=== PATIENT | female | born 1990 | race Two or more races ===

== ENCOUNTER 2024-03-17 08:25 | Emergency (ER) | payer BC, SELFPAY ==
--- NOTE | 2024-03-17 08:51 | XR_ITS ---
Examination: Complete OB ultrasound, less than 14 weeks, transabdominal Date and time of exam: March 17, 2024 0920 hours INDICATIONS: Pelvic cramping and vaginal bleeding onset today Technique: Obstetrical ultrasound images less than 14 weeks performed via transabdominal imaging Findings: Uterus 8.5 x 4.4 x 5.1 cm No uterine mass or intrauterine gestation Endometrial stripe 8mm Right ovary 3.2 x 2.3 x 2.8 cm arterial flow Left ovary 3.0 x 2.2 x 2.2 cm arterial flow IMPRESSION: Negative examination
--- NOTE | 2024-03-17 08:52 | PD.EDVAGBL ---
ED OB Contraction Preg RMI/HPI General Chief complaint: Vaginal Bleeding Stated complaint: VAG BLEED, 6WKS Time Seen by Provider: 03/17/24 08:26 Arrival date/time: 03/17/24 08:25 33-year-old female A1 presents to the emergency department complaints of vaginal spotting and pelvic pain. Patient believes she is approximately 6 weeks Limitations: no limitations Related Data Previous Rx's ?Medication ?Instructions ?Recorded cephalexin 500 mg capsule 500 mg PO BID 7 days #14 caps 03/17/24 Allergies Allergy/AdvReac Type Severity Reaction Status Date / Time No Known Allergies Allergy Verified 03/17/24 08:27 Review of Systems Review of Systems Systems Reviewed: All systems reviewed, normal except as documented Constitutional Constitutional: Reports system reviewed and no additional complaints, except as documented, Denies fever(s) and Denies headache(s) Eyes Eyes: Reports system reviewed and no additional complaints, except as documented and Denies blurry vision ENT Ears, Nose, Mouth, and Throat: Reports system reviewed and no additional complaints, except as documented, Denies headache(s), Denies nasal congestion and Denies nasal discharge Cardiovascular Cardiovascular: Reports system reviewed and no additional complaints, except as documented, Denies chest pain and Denies dyspnea Respiratory Respiratory: Reports system reviewed and no additional complaints, except as documented, Denies chest congestion, Denies cough and Denies dyspnea Gastrointestinal Gastrointestinal: Reports system reviewed and no additional complaints, except as documented and Denies abdominal pain Genitourinary Genitourinary: Reports system reviewed and no additional complaints, except as documented and Reports abnormal vaginal bleeding Integumentary/Breasts Skin/Breast: Reports system reviewed and no additional complaints, except as documented and Denies rash Neurologic Neurologic: Reports system reviewed and no additional complaints, except as documented, Reports as per HPI and Denies headache(s) Past Medical History Social History SMOKING STATUS: Never smoker ED Exam General Limitations: Present no limitations General appearance: Present alert and in no apparent distress Head Head exam: Present atraumatic Eye Eye exam: Present normal appearance, PERRL and EOMI ENT ENT exam: Present normal exam, normal oropharynx and mucous membranes moist Neck Neck exam: Present normal inspection, full ROM and trachea midline Chest Chest inspection: Present normal inspection and symmetric chest wall rise Respiratory Respiratory exam: Present normal lung sounds bilaterally Cardiovascular Cardiovascular exam: Present regular rate, normal rhythm and normal heart sounds Abdominal Exam Abdominal exam: Present soft and normal bowel sounds Extremities Exam Extremities exam: Present normal inspection and full ROM Back Exam Back exam: Present normal inspection and full ROM Neurological Exam Neurological exam: Present alert, oriented X3 and CN II-XII intact Psychiatric Psychiatric exam: Present normal affect and normal mood Skin Skin exam: Present warm, dry, intact and normal color Course Quality Measures none Orders Category Date Time Status US OB <= 14 weeks fetus Stat Exams 03/17/24 08:51 Completed ABO/RH Type Stat Lab 03/17/24 09:00 Completed Beta HCG,Quantitative Stat Lab 03/17/24 09:00 Completed CBC Stat Lab 03/17/24 09:00 Completed Comprehensive Metabolic Panel Stat Lab 03/17/24 09:00 Completed UA [Urinalysis] Stat Lab 03/17/24 09:15 Completed Vital Signs Vital signs: Vital Signs Temperature 98.2 F 03/17/24 08:54 Pulse Rate 68 03/17/24 08:54 Respiratory Rate 16 03/17/24 08:54 Blood Pressure 127/82 03/17/24 08:54 Pulse Oximetry (%) 99 03/17/24 08:54 Oxygen Delivery Method Room Air 03/17/24 08:54 O2 saturation 98% room air within normal limits Vaginal Bleeding MDM Narrative MDM Narrative: 33-year-old female A1 presents to the emergency department complaints of vaginal spotting and pelvic pain. Patient believes she is approximately 6 weeks On exam patient well-appearing patient is not appear ill or toxic in no acute distress Lab work as well as ultrasound obtained hCG quantitative level is only 3 I suspect patient has a missed Ultrasound shows no evidence of Patient discharged home in no distress I did explain the patient she is to follow-up with [employer] [employer] for further evaluation repeat lab work Patient data External records reviewed:: [facility] previous records Clinical information provided by:: patient Social determinants that could affect healthcare access:: none Patient has the following chronic illnesses:: None How is presenting disease/condition affected by chronic disease/condition?: no chronic disease Evaluation data The following diagnostics were reviewed and interpreted by me:: lab results and radiology exam(s) Lab and/or radiology exams considered but not ordered:: Labs and radiology obtained Interpretation Summary: Reviewed by me Medications / Prescriptions Medications or Prescriptions considered but not ordered:: Given no meds Medication administrations:: No meds given Consultations Consultation(s) initiated? (list below): No Diagnosis Vaginal Bleeding Differential Diagnosis: missed , threatened and dysfunctional uterine bleeding Most likely diagnosis given after review of the tests above:: Threatened Admission Indicated Admission indicated?: not indicated Admission Request Was there a request for admission?: No Disposition Plan Disposition Plan: Discharge Discharge Attestation Discharge Attestation: The patient and all family members were given an opportunity to ask questions and understood the discharge instructions. Discharge instructions specifically effects, indications for sooner follow up or return to the emergency department, and the expected course of current diagnosis. Patient condition: Stable Discharge Plan Plan Patient Disposition: HOME (Self Care) Disposition Comment: Stable Prescriptions/Referrals Prescriptions/Med Rec: New cephalexin 500 mg capsule 500 mg PO BID 7 Days Qty: 14 0RF Referrals: No Primary/Family,Physician [Primary Care Provider] - In 1 week Problem List Clinical Impression: Vaginal bleeding, UTI (urinary tract infection) Patient/Caregiver Discharge Instructions Education Materials: Urinary Tract Infections in Women Additional Instructions: Please follow up with your primary care doctor in the next 24-48hrs for any worsening symptoms return here immediately Print Language: Bulgarian Stand Alone Forms: Ilana Award Info., Patient Portal Info Letter PA/RADHA Supervising Physician JOSH/RADHA Supervising Physician: Dr. Fuentes
[2024-03-17 08:54] VITALS: BP 127/82; PULSE 68; RESP 16; TEMP 36.8; O2SAT 99; BMI 26.6
[2024-03-17 09:24] LABS: Basophils % (Auto) 0 % (0-2.5); Eosinophils # (Auto) 0.1 Thou/mm3 (0.0-0.5); Eosinophils % (Auto) 1 % (0-10); Hematocrit 38.7 % (36.0-46.0); Hemoglobin 13.1 g/dL (12.0-16.0); Immature Granulocytes % (Auto) 0 % (0-0); Immature Granulocytes Auto 0.01 Thou/mm3 (0.00-0.00); Lymphocytes # (Auto) 1.5 Thou/mm3 (1.0-4.8); Lymphocytes % (Auto) 20 % (10-50); Mean Corpuscular HGB Conc 33.9 g/dl (31.0-37.0); Mean Corpuscular Hemoglobin 31.2 pg (25.0-35.0); Mean Corpuscular Volume 92 fL (80-100); Monocytes # (Auto) 0.5 Thou/mm3 (0.0-0.8); Monocytes % (Auto) 7 % (0-12); Neutrophils # (Auto) 5.3 Thou/mm3 (1.8-7.7); Neutrophils % (Auto) 72 % (37-80); Nucleated Red Blood Cell % 0 /100 WBC (0); Platelet Count 270 Thou/mm3 (140-440); RDW Standard Deviation 45.1 fL (36.4-46.3); White Blood Count 7.4 Thou/mm3 (3.6-11.0)
[2024-03-17 09:58] LABS: Alanine Aminotransferase 13 U/L (10-49); Albumin, Serum 4.9 gm/dL (3.5-5.0); Albumin/Globulin Ratio 1.6 (1.2-2.2); Alkaline Phosphatase 56 U/L (46-116); Anion Gap 6 (7-16); Aspartate Amino Transferase 49 U/L (0-34); BUN/Creatinine Ratio 20 Ratio (12-20); Beta HCG,Quantitative 3 mIU/mL (<5.0); Bilirubin,Total 0.6 mg/dL (0.3-1.2); Blood Urea Nitrogen 18 mg/dL (9-23); Calcium 9.6 mg/dL (8.3-10.6); Calcium (Corrected) 9.6 mg/dL (8.5-10.1); Carbon Dioxide 26.1 mMol/L (20.0-31.0); Chloride 105 mMol/L (98-107); Creatinine (Component) 0.9 mg/dL (0.6-1.3); Estimated Creatinine Clearance 100.6 mL/min (>60); Glucose 102 mg/dL (74-106); Osmolality,Calculated 275 (275-295); Potassium 4.1 mMol/L (3.4-5.1); Sodium 137 mMol/L (136-145); Total Protein 7.9 gm/dL (5.7-8.2); eGFR > 60 See Note
[2024-03-17 10:02] LABS: Collection Type, Urine Clean Catch
[2024-03-17 10:14] LABS: Bacteria,Urine Rare; Bilirubin,Urine Negative (Negative); Blood,Urine 3+ (Negative); Color,Urine Lt-Brown (Lt Yel-Yel); Glucose, Urine Negative (Negative); Ketones,Urine Negative (Negative); Leukocyte Esterase,Urine Positive (Negative); Nitrite,Urine Negative (Negative); Protein,Urine Trace (Neg - Trace); RBC,Urine 1268 /hpf (0-3); Specific Gravity,Urine 1.014 (1.001-1.035); Squamous Epithelial Cell,Urine 7 /hpf (0-5); Urobilinogen,Urine Negative mg/dL (0.0-1.0); WBC,Urine 31 /hpf (0-5)
[2024-03-17 10:15] LABS: Clarity,Urine Hazy (Clear/Hazy)
== END 2024-03-17 10:51 | disposition home or self-care (01) ==
PROVIDERS: Nurse Practitioner Primary Care; Emergency Provider Internal Medicine Rheumatology
DX: O20.9 Hemorrhage in early pregnancy, unspecified (principal); O23.40 Unspecified infection of urinary tract in pregnancy, unspecified trimester; N39.0 Urinary tract infection, site not specified; Z3A.00 Weeks of gestation of pregnancy not specified
CPT/HCPCS: 36415; 76801; 80053; 81001; 84702; 85025; 86900; 86901; 99284

== ENCOUNTER 2024-07-14 09:14 | Outpatient (AMB) | payer BC, SELFPAY ==
[2024-07-14 09:34] VITALS: BP 99/68; PULSE 98; RESP 14; TEMP 36.4; O2SAT 95; BMI 26.4
--- NOTE | 2024-07-14 09:34 | OBCLNT_ITS ---
Vital Signs 07/14/24 09:34 Height 1.75 m Height Method Stated Weight 81.363 kg Weight Measurement Method Standing Scale BMI 26.4 BP 99/68 Blood Pressure Source Automatic Cuff Blood Pressure Location Left Upper Arm Position Sitting Respiration 14 Pulse 98 Pulse Source Monitor Temp 97.6 F Temp Source Oral Pulse Oximetry (%) 95 Oxygen Delivery Method Room Air Allergies/Home Meds Allergies & Medications Allergies No Known Allergies Allergy (Verified 07/14/24 09:35) Medication Reconciliation No Known Home Medications 07/14/24 [History Confirmed 07/14/24] Intake Visit Data Collection New Patient or Established: Established Patient (seen at [facility] within 3 years) Reason for Visit:: CARE Seen by Clinical Staff ONLY (RN/MA): No Eyeglass Lens Grinder Required: No Do You Feel Safe at Home: Yes Authorities Contacted: N/A PCP or OBGYN visit in last 3 months: Yes Hx Now: Yes Are you currently on any form of Control: No Last menstrual period: 05/14/24 Pain Present Currently: No Pain Scale Used: Stovall-Javier/Numerical Pain scale:: 0 Smoking Status Smoking Status: Never smoker Questionnaires Covid-19 Vaccine Questionnaire Has patient been vacinated for Covid-19 Have you been vacinated for Covid-19: Yes PHQ-9 PHQ-2 Over the last 2 weeks, how often have you been bothered by any of the following problems? 1. Little interest or pleasure in doing things: not at all 2. Feeling down, depressed, or hopeless: not at all Total score: 0 PHQ-9 3. Trouble falling or staying asleep, or sleeping too much: Not at all 4. Feeling tired or having little energy: Not at all 5. Poor appetite or overeating: Not at all 6. Feeling bad about yourself - or that you are a failure or have let yourself or your family down: Not at all 7. Trouble concentrating on things, such as reading the newspaper or watching television: Not at all 8. Moving or speaking so slowly that other people could have noticed? - Or the opposite - being so fidgety or restless that you have been moving around a lot more than usual: not at all 9. Thoughts that you would be better off or of hurting yourself in some way: Not at all Total score: 0 Source: Developed by Drs. Des Mejia, Vivian Aguilar, Clinton Love and colleagues, with an educational hortencia from [employer]. Depression screen completed yes Social History Living Situation History Marital Status: Lives With: Family Housing: House Tobacco History Smoking Status: Never smoker Second Hand Smoke Exposure: No Alcohol History Alcohol Intake: Never Domestic Abuse History Do You Feel Safe at Home: Yes Past Medical History Past Medical History Have you ever been diagnosed with any of the following: Neurological Problems Cerebrovascular Accident (CVA): No Transient Ischemic Attacks (TIA): No Dementia: No Alzheimer's Disease: No Parkinson's Disease: No Brain Tumor: No Meningitis: No Seizures: No Epilepsy: No Cardiology Problems Myocardial Infarction: No Cardiac Arrhythmia: No Atrial Fibrillation: No Angina: No Congestive Heart Failure: No Hypertension: No Respiratory Problems Chronic Obstructive Pulmonary Disease (COPD): No Asthma: No Bronchitis: No Emphysema: No Tuberculosis: No Hx Cough: No Cough: No Wheezing: No Chest Deformities: No Smoking: No Smoking Cessation Counseling: No Smoking Exposure: No Tobacco Use: No Stomache/Intestinal Problems Liver Cancer: No Hepatitis: No Cirrhosis: No Pancreatic Cancer: No Pancreatitis: No Celiac Disease: No Gall Bladder Disease: No Gastrointestinal Bleed: No Esophageal Varices: No Genital/Urinary Problems Chronic Kidney Disease: No Renal Disease: No Kidney Stones: No Polycystic Kidney Disease: No Reproductive Problems Breast Cancer: No Endometriosis: No Fibroids: No Genital Herpes: No Gonorrhea: No Previous Pregnancies: Yes Musculoskeletal Problems Muscular Dystrophy: No Myasthenia Gravis: No Marfan's Syndrome: No Bone Cancer: No Scoliosis: Yes Carpal Tunnel Syndrome: No Fibromyalgia: No Fractures: No Head,Eye,Nose,Throat Problems Cataracts: No Glaucoma: No Blind: No Retinal Detachment: No Endocrine Problems Diabetes Mellitus Type 1: No Diabetes Mellitus Type 2: No Blood Problems Anemia: Yes Leukemia: No Hemophilia: No Thalassemia: No Psychologic Problems Schizophrenia: No Recreational Drug Use: No Bipolar Disorder: No Other Problems Autoimmune Disease: No Down Syndrome: No Autism: No Developmental Delay: No Cosmetic Surgery: No Surgical History Angioplasty: No History of Present Illness HPI Caroline Denise is a 34-year-old 3 para 0 that comes today for her first OBI appointment. Patient has started her care Dr Giraldo's office. Patient has had beta quant drawn and several ultrasounds for viability. Denies any vaginal bleeding at this point. Patient has some cramping. She also complains of increased fatigue nausea and bloating. Patient denies social habits. Denies surgery. Patient has a history of iron deficient anemia. Jennifer juan's mother has a history of high blood pressure. And patient denies no other complaints. Both patient and partner are very happy about the . 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 Last period May 14, 2024. This gives a due date on February 16, 2025. OB Initial Visit OB Flowsheet OB Flowsheet Initial Weight: Not Recorded Date -?-?-?-?-?-?-?-?-?-?-?-?- EGA Weight Edema CTX Effacement BP Fundal ht Pres Dilation Effacement Station Visit Note Alb Glu FHR Mov 07/14/24 -?-?-?-?-?-?-?-?-?-?-?-?- 8w 5d 81.363 kg absent absent 8.0 Camelia is a 3 para 0 SAB 1 TAB 1. Patient recent SAB was in March. Last period was for FET May 14, 2024 and this gives due date February 16, 2025. Patient is a transfer from Dr Giraldo's office. Medical release for records was obtained. Patient complains of increasing nausea, fatigue, bloating. Denies SAB complaints. Very happy with the . Currently taking vitamins. I advised patient to take B6 twice daily and then I discussed the bands and how to use those for her complaints of nausea. Discussed other comfort measures for nausea vomiting and fatigue in early . I will schedule her MFM NT. And I will call patient to ordered labs and NIPT and screening labs after review of records from Dr. Faulkner 160 absent Menstrual History Menstrual reliability: definite Flow: normal Menstrual regularity: regular Monthly: Yes Age at menarche: 12 On control pills at conception: No Date of positive home test: 06/20/24 Associated symptoms (LMP): Reports nausea and fatigue OB History : 3 Para: 0 Hx Total # of Abortions (Spontaneous & Elective): 2 # of Living Children: 0 Infection History & Risk Evaluation History of STDs: none Genetic Screening & History Symptoms since LMP: nausea, fatigue and bloating Genetic Screening/Teratology Counseling - Includes patient, baby's father, or anyone in either family with: 1. Patient's age 35 years or older as of estimated date of delivery: No 2. Thalassemia (Tajik, Vietnamese, Mediterranean, or Background); MCV less than 80: No 3. Neural Tube Defect (Meningomyelocele, Spina Bifida, or Anencephaly): No 4. Congenital Heart Defect: No 5. Down Syndrome: No 6. Refugio-Sachs (Ashkenazi Voodoo, Cajun, Sudanese Eritrean): No 7. Andrew Disease (Ashkenazi Voodoo): No 8. Familial Dysautonomia (Ashkenazi Voodoo): No 9. Sickle Cell Disease or Trait (): No 10. Hemophilia or other blood disorders: No 11. Muscular Dystrophy: No 12. Cystic Fibrosis: No 13. Cora's Chorea: No 14. Mental Retardation/Autism: No 15. Other inherited genetic or chromosomal disorder: No 16. Maternal Metabolic Disorder (EG,TYPE 1 Diabetes, PKU): No 17. Patient or baby's father had a child with defects not listed above: No 18. Recurrent loss or a stillbirth: No 19. Medications (including supplements, vitamins, herbs or otc drugs)/illicit/recreational drugs/alcohol since last menstrual period: No 20. Any other: No Infection History 1. Live with someone with TB or exposed to TB: No 2. Rash or viral illness since last menstrual period: No 3. Hepatitis B,C: No Other (see comments) Source: [employer] Review of Systems Review of Systems Systems Reviewed: All systems reviewed, normal except as documented Constitutional Constitutional: Reports fatigue Gastrointestinal Gastrointestinal: Reports nausea Endocrine Endocrine: Reports fatigue Exam General Limitations: no limitations General Appearance: alert, in no apparent distress, comfortable, cooperative, healthy appearing, well developed and well groomed Neck Neck exam: Present normal inspection, full ROM and trachea midline Chest Chest inspection: Present normal inspection and symmetric chest wall rise Resp Respiratory exam: Present normal lung sounds bilaterally Card Cardiovascular exam: Present regular rate, normal rhythm and normal heart sounds Abdominal Abdominal exam: Present soft (fht: 160 on sono, IUP 8-9 week) and normal bowel sounds Psych Psychiatric exam: Present normal affect and normal mood Assessment & Plan Diagnosis / Problem List (1) Encounter for supervision of normal primigravida in first trimester, antepartum: Status: Acute (2) Supervision of high risk , unspecified, first trimester: Status: Acute (3) Advanced maternal age (AMA) in : Status: Acute Plan Discussed SAB precautions with patient. Patient advised to continue with her maternal- medicine referral because of AMA. Continue vitamins. Discussed comfort measures for nausea and fatigue. I advised patient to start vitamin B6 twice a day for the nausea and discussed the bands with patient and how to use them. Medical release from Dr Giraldo's office for record and ultrasound reports. We will draw maternity screen and carrier screen after review of existing labs. Order OB panel if needed for after review of labs. Return in 3 weeks OB check Additional Plan Follow Up: 3 Weeks (rtc 3 week ob check) Office Procedures OB Clinic LOC & Office Proc's Nursing/Assessment Patient Status: Established Patient OB Clinic Nursing Assessment: Medication Reconciliation, Update PMH in EMR and Vital Signs OB Clinic Coordination of Care: AMA, Complex Care and Chronic Disease 1-5, Consent,records obtained, informed consent, Education Simp Pt/Fam, Lab and Imaging orders and Staff clarify orders Special Needs: Heart tones Established Patient Charge Established Patient Point Assignment: 150 Established Patient Point Charge: EP Level 4 (120-155)
== END 2024-07-14 10:27 | disposition home or self-care (01) ==
LOC: HODSOBC 09:14
PROVIDERS: PCP Advanced Practice Midwife; Referring Provider Advanced Practice Midwife; Supervising Provider Advanced Practice Midwife; Visit Provider Advanced Practice Midwife
DX: O09.511 Supervision of elderly primigravida, first trimester (principal); Z3A.08 8 weeks gestation of pregnancy
CPT/HCPCS: 99214; G0463

== ENCOUNTER 2024-08-02 15:22 | Outpatient (AMB) | payer BC, SELFPAY ==
--- NOTE | 2024-08-02 15:23 | OBCLNT_ITS ---
Vital Signs 08/02/24 15:30 Height 1.75 m Height Method Measured Weight 83.461 kg Weight Measurement Method Standing Scale BMI 27.2 BP 143/78 H Blood Pressure Source Automatic Cuff Blood Pressure Location Left Upper Arm Position Sitting Respiration 12 Pulse 66 Pulse Source Monitor Temp 98.4 F Temp Source Oral Pulse Oximetry (%) 98 Oxygen Delivery Method Room Air Allergies/Home Meds Allergies & Medications Allergies No Known Allergies Allergy (Verified 08/02/24 15:31) Medication Reconciliation No Known Home Medications 07/14/24 [History Confirmed 08/02/24] Intake Visit Data Collection New Patient or Established: Established Patient (seen at [facility] within 3 years) Reason for Visit:: CARE Seen by Clinical Staff ONLY (RN/MA): No Airfield Engineer Officer Required: No Do You Feel Safe at Home: Yes Authorities Contacted: N/A PCP or OBGYN visit in last 3 months: Yes Hx Now: Yes Pain Present Currently: Yes Pain Scale Used: Stovall-Javier/Numerical Pain scale:: 0 Smoking Status Smoking Status: Never smoker Questionnaires Covid-19 Vaccine Questionnaire Has patient been vacinated for Covid-19 Have you been vacinated for Covid-19: No PHQ-9 PHQ-2 Over the last 2 weeks, how often have you been bothered by any of the following problems? 1. Little interest or pleasure in doing things: not at all 2. Feeling down, depressed, or hopeless: not at all Total score: 0 PHQ-9 3. Trouble falling or staying asleep, or sleeping too much: Not at all 4. Feeling tired or having little energy: Not at all 5. Poor appetite or overeating: Not at all 6. Feeling bad about yourself - or that you are a failure or have let yourself or your family down: Not at all 7. Trouble concentrating on things, such as reading the newspaper or watching television: Not at all 8. Moving or speaking so slowly that other people could have noticed? - Or the opposite - being so fidgety or restless that you have been moving around a lot more than usual: not at all 9. Thoughts that you would be better off or of hurting yourself in some way: Not at all Total score: 0 Source: Developed by Drs. Des Mejia, Vivian BClinton Dickens and colleagues, with an educational hortencia from [employer]. Depression screen completed yes Social History Living Situation History Lives With: Family Housing: House Tobacco History Smoking Status: Never smoker Second Hand Smoke Exposure: No Alcohol History Alcohol Intake: Never Domestic Abuse History Do You Feel Safe at Home: Yes Past Medical History Past Medical History Have you ever been diagnosed with any of the following: Neurological Problems Cerebrovascular Accident (CVA): No Transient Ischemic Attacks (TIA): No Dementia: No Alzheimer's Disease: No Parkinson's Disease: No Brain Tumor: No Meningitis: No Seizures: No Epilepsy: No Cardiology Problems Myocardial Infarction: No Cardiac Arrhythmia: No Atrial Fibrillation: No Angina: No Congestive Heart Failure: No Hypertension: No Respiratory Problems Chronic Obstructive Pulmonary Disease (COPD): No Asthma: No Bronchitis: No Emphysema: No Tuberculosis: No Hx Cough: No Cough: No Wheezing: No Chest Deformities: No Smoking: No Smoking Cessation Counseling: No Smoking Exposure: No Tobacco Use: No Stomache/Intestinal Problems Liver Cancer: No Hepatitis: No Cirrhosis: No Pancreatic Cancer: No Pancreatitis: No Celiac Disease: No Gall Bladder Disease: No Gastrointestinal Bleed: No Esophageal Varices: No Genital/Urinary Problems Renal Disease: No Kidney Stones: No Polycystic Kidney Disease: No Reproductive Problems Breast Cancer: No Endometriosis: No Fibroids: No Genital Herpes: No Gonorrhea: No Previous Pregnancies: Yes Musculoskeletal Problems Muscular Dystrophy: No Myasthenia Gravis: No Marfan's Syndrome: No Bone Cancer: No Scoliosis: Yes Carpal Tunnel Syndrome: No Fibromyalgia: No Fractures: No Head,Eye,Nose,Throat Problems Cataracts: No Glaucoma: No Blind: No Retinal Detachment: No Endocrine Problems Diabetes Mellitus Type 1: No Diabetes Mellitus Type 2: No Blood Problems Anemia: Yes Leukemia: No Hemophilia: No Thalassemia: No Psychologic Problems Schizophrenia: No Recreational Drug Use: No Bipolar Disorder: No Other Problems Down Syndrome: No Autism: No Developmental Delay: No Cosmetic Surgery: No Surgical History Angioplasty: No Visit OB Visit Log OB Flowsheet Initial Weight: Not Recorded Date -?-?--?-?-?-?-?-?-?-?-?-?- EGA Weight Edema CTX Effacement BP Fundal ht Pres Dilation Effacement Station Visit Note Alb Glu FHR Mov 07/14/24 -?-?-?-?-?-?-?-?-?-?-?-?- 8w 1d 81.363 kg absent absent 99/68 8.0 Camelia is a 3 para 0 SAB 1 TAB 1. Patient recent SAB was in March. Last period was for FET May 14, 2024 and this gives due date February 16, 2025. Patient is a transfer from Dr Giraldo's office. Medical release for records was obtained. Patient complains of increasing nausea, fatigue, bloating. Denies SAB complaints. Very happy with the . Currently taking vitamins. I advised patient to take B6 twice daily and then I discussed the bands and how to use those for her complaints of nausea. Discussed other comfort measures for nausea vomiting and fatigue in early . I will schedule her MFM NT. And I will call patient to ordered labs and NIPT and screening labs after review of records from Dr. Faulkner 160 absent 08/02/24 -?-?-?-?-?-?-?-?-?-?-?-?- 10w 6d 83.461 kg absent absent 143/78 11 Denies SAB complaints, nausea improved with sea bands and vitamin B6, mfm appointment scheduled, ordered NIPT and carrier screens. comfort measure for n/v given. rtc 4 week 168 absent CARI Calculator Estimated Delivery Date Method Current WG Current Estimate 02/22/25 Ultrasound #1 10w 6d Other Estimates 02/18/25 LMP (Certain) 11w 3d Assessment & Plan Diagnosis / Problem List (1) Supervision of high risk , unspecified, first trimester: Status: Acute Plan Continue vitamin B6 and sea bands for nausea. Continue prenatals. SAB precautions reviewed with patient. [facility] appointment for anatomy scan was or dered. Patient will do NIPT and carrier screens tomorrow. Return in 3 weeks OB check Additional Plan Follow Up: 4 Weeks (obc) Office Procedures OB Clinic LOC & Office Proc's Nursing/Assessment Patient Status: Established Patient OB Clinic Nursing Assessment: Medication Reconciliation, Update PMH in EMR and Vital Signs OB Clinic Coordination of Care: Complex Care and Chronic Disease 1-5, Consent,records obtained, informed consent, Education Simp Pt/Fam, Results/Orders obtained and Staff clarify orders Special Needs: Heart tones Established Patient Charge Established Patient Point Assignment: 120 Established Patient Point Charge: EP Level 4 (120-155)
[2024-08-02 15:30] VITALS: BP 143/78; PULSE 66; RESP 12; TEMP 36.9; O2SAT 98; BMI 27.2
== END 2024-08-02 16:12 | disposition home or self-care (01) ==
LOC: HODSOBC 15:22
PROVIDERS: Supervising Provider Advanced Practice Midwife; Visit Provider Advanced Practice Midwife
DX: O09.521 Supervision of elderly multigravida, first trimester (principal); O09.291 Supervision of pregnancy with other poor reproductive or obstetric history, first trimester; Z3A.10 10 weeks gestation of pregnancy
CPT/HCPCS: 99214; G0463

== ENCOUNTER 2024-09-01 15:24 | Outpatient (AMB) | payer BC, SELFPAY ==
[2024-09-01 15:55] VITALS: BP 110/66; PULSE 74; RESP 17; TEMP 36.7; O2SAT 97; BMI 26.6
--- NOTE | 2024-09-01 15:55 | OBCLNT_ITS ---
Vital Signs 09/01/24 15:55 Height 1.75 m Height Method Stated Weight 81.647 kg Weight Measurement Method Standing Scale BMI 26.6 BP 110/66 Blood Pressure Source Automatic Cuff Blood Pressure Location Right Upper Arm Position Sitting Respiration 17 Pulse 74 Pulse Source Monitor Temp 98.1 F Temp Source Temporal Artery Scan Pulse Oximetry (%) 97 Oxygen Delivery Method Room Air Allergies/Home Meds Allergies & Medications Allergies No Known Allergies Allergy (Verified 09/01/24 15:56) Medication Reconciliation No Known Home Medications 07/14/24 [History Confirmed 09/01/24] Intake Visit Data Collection New Patient or Established: Established Patient (seen at [facility] within 3 years) Reason for Visit:: OBC Seen by Clinical Staff ONLY (RN/MA): No Press Operator 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 1. Little interest or pleasure in doing things: not at all 2. Feeling down, depressed, or hopeless: not at all Total score: 0 PHQ-9 3. Trouble falling or staying asleep, or sleeping too much: Not at all 4. Feeling tired or having little energy: Not at all 5. Poor appetite or overeating: Not at all 6. Feeling bad about yourself - or that you are a failure or have let yourself or your family down: Not at all 7. Trouble concentrating on things, such as reading the newspaper or watching television: Not at all 8. Moving or speaking so slowly that other people could have noticed? - Or the opposite - being so fidgety or restless that you have been moving around a lot more than usual: not at all 9. Thoughts that you would be better off or of hurting yourself in some way: Not at all Total score: 0 If you checked off any problems, how difficult have these problems made it for you to do your work, take care of things at home, or get along with other people?: not difficult at all Source: Developed by Drs. Des Mejia, Vivian Aguilar, Clinton Love and colleagues, with an educational hortencia from [employer]. 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 Patient recent SAB was in March. Last period was for FET May 14, 2024 and this gives due date February 16, 2025. Patient is a transfer from Dr Giraldo's office. Medical release for records was obtained. Patient complains of increasing nausea, fatigue, bloating. Denies SAB complaints. Very happy with the . Currently taking vitamins. I advised patient to take B6 twice daily and then I discussed the bands and how to use those for her complaints of nausea. Discussed other comfort measures for nausea vomiting and fatigue in early . I will schedule her MFM NT. And I will call patient to ordered labs and NIPT and screening labs after review of records from Dr. Faulkner 08/02/24 -?-?-?-?-?-?-?-?-?-?-?-?- 10w 6d 83.461 kg 143/78 absent 11 168 ab sent Denies SAB complaints, nausea improved with sea bands and vitamin B6, mfm appointment scheduled, ordered NIPT and carrier screens. comfort measure for n/v given. rtc 4 week 09/01/24 -?-?-?-?-?-?-?-?-?-?-?-?- 15w 1d 81.647 kg 110/66 absent unknown 15 155 active Doing well. light FM, c/o nasal congestion, uses OTC, afebrile. no SAB complaints. mfm for 10/11/24 keep MFM appointment. discuss sab precaution, discuss diet wnd weight. comfort measure for congestion. AFP. rtc 4 week CARI Calculator Estimated Delivery Date Method Current WG Current Estimate 02/22/25 Ultrasound #1 15w 1d Other Estimates 02/18/25 LMP (Certain) 15w 5d Notes Visit Date: 09/01/24 Last Updated by: Amna Olivarez CNM 34 yo LMP 05/14/24. EDC 02/16/25. sono 06/25/24: 5w3. EDC: 02/22/25. NIPT-,SMA-,CF-, O+,abs-, rpr;;nr, rub imm, hbsag-,hiv-,HC-, GC/CT-, / Office Procedures OB Clinic LOC & Office Proc's Nursing/Assessment Patient Status: Established Patient OB Clinic Nursing Assessment: Medication Reconciliation, Update PMH in EMR and V ital Signs OB Clinic Coordination of Care: Complex Care and Chronic Disease 1-5, Consent,records obtained, informed consent, Education Simp Pt/Fam and Staff clarify orders Special Needs: Heart tones Established Patient Charge Established Patient Point Assignment: 115 Established Patient Point Charge: EP Level 3 (80-115) Assessment & Plan Diagnosis / Problem List (1) Advanced maternal age (AMA) in : Status: Acute (2) Supervision of high risk , unspecified, first trimester: Status: Acute Plan continue PNV, discuss sab prec, increase fluid, AFP, keep MFM appointment 10/11/24, rtc 4 w obc Additional Plan Follow Up: 4 Weeks (obc)
== END 2024-09-01 17:09 | disposition home or self-care (01) ==
LOC: HODSOBC 15:24
PROVIDERS: Supervising Provider Advanced Practice Midwife; Visit Provider Advanced Practice Midwife
DX: O09.522 Supervision of elderly multigravida, second trimester (principal); Z3A.15 15 weeks gestation of pregnancy
CPT/HCPCS: 99213; G0463

== ENCOUNTER 2024-10-20 08:10 | Outpatient (AMB) | payer BC, SELFPAY ==
[2024-10-20 08:25] VITALS: BP 114/73; PULSE 68; RESP 14; TEMP 36.6; O2SAT 97; BMI 28.1
--- NOTE | 2024-10-20 08:25 | OBCLNT_ITS ---
Vital Signs 10/20/24 08:25 Height 1.75 m Height Method Stated Weight 86.183 kg Weight Measurement Method Standing Scale BMI 28.1 BP 114/73 Blood Pressure Source Automatic Cuff Blood Pressure Location Left Upper Arm Position Sitting Respiration 14 Pulse 68 Pulse Source Monitor Temp 97.9 F Temp Source Oral Pulse Oximetry (%) 97 Oxygen Delivery Method Room Air Allergies/Home Meds Allergies & Medications Allergies No Known Allergies Allergy (Verified 10/20/24 08:26) Medication Reconciliation No Known Home Medications 07/14/24 [History Confirmed 10/20/24] Intake Visit Data Collection New Patient or Established: Established Patient (seen at [facility] within 3 years) Reason for Visit:: CARE Seen by Clinical Staff ONLY (RN/MA): No 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 1. Little interest or pleasure in doing things: not at all 2. Feeling down, depressed, or hopeless: not at all Total score: 0 PHQ-9 3. Trouble falling or staying asleep, or sleeping too much: Not at all 4. Feeling tired or having little energy: Not at all 5. Poor appetite or overeating: Not at all 6. Feeling bad about yourself - or that you are a failure or have let yourself or your family down: Not at all 7. Trouble concentrating on things, such as reading the newspaper or watching television: Not at all 8. Moving or speaking so slowly that other people could have noticed? - Or the opposite - being so fidgety or restless that you have been moving around a lot more than usual: not at all 9. Thoughts that you would be better off or of hurting yourself in some way: Not at all Total score: 0 Source: Developed by Drs. Des Mejia, Vivian Aguilar, Clinton Love and colleagues, with an educational hortencia from [employer]. 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 Patient recent SAB was in March. Last period was for FET May 14, 2024 and this gives due date February 16, 2025. Patient is a transfer from Dr Giraldo's office. Medical release for records was obtained. Patient complains of increasing nausea, fatigue, bloating. Denies SAB complaints. Very happy with the . Currently taking vitamins. I advised patient to take B6 twice daily and then I discussed the bands and how to use those for her complaints of nausea. Discussed other comfort measures for nausea vomiting and fatigue in early . I will schedule her MFM NT. And I will call patient to ordered labs and NIPT and screening labs after review of records from Dr. Faulkner 08/02/24 -?-?-?-?-?-?-?-?-?-?-?-?- 10w 6d 83.461 kg 143/78 absent 11 168 ab sent Denies SAB complaints, nausea improved with sea bands and vitamin B6, mfm appointment scheduled, ordered NIPT and carrier screens. comfort measure for n/v given. rtc 4 week 09/01/24 -?-?-?-?-?-?-?-?-?-?-?-?- 15w 1d 81.647 kg 110/66 absent unknown 15 155 active Doing well. light FM, c/o nasal congestion, uses OTC, afebrile. no SAB complaints. mfm for 10/11/24 keep MFM appointment. discuss sab precaution, discuss diet wnd weight. comfort measure for congestion. AFP. rtc 4 week 10/20/24 -?-?-?-?-?-?-?-?-?-?-?-?- 22w 1d 86.183 kg 114/73 absent unknown 22 145 active questions answered about . + fm, no ptl complaints discuss comfort measure for 2nd tri, question answered re , mfm appointment 1 week. discuss ptl prec, rtc 4 week obc CARI Calculator Estimated Delivery Date Method Current WG Current Estimate 02/22/25 Ultrasound #1 22w 1d Other Estimates 02/18/25 LMP (Certain) 22w 5d Notes Visit Date: 10/20/24 Last Updated by: Amna Olivarez CNM 10/11/24: NIPT- Visit Date: 09/01/24 Last Updated by: Amna Olivarez CNM 34 yo LMP 05/14/24. EDC 02/16/25. sono 06/25/24: 5w3. EDC: 02/22/25. NIPT-,SMA-,CF-, O+,abs-, rpr;;nr, rub imm, hbsag-,hiv-,HC-, GC/CT-, / Office Procedures OB Clinic LOC & Office Proc's Nursing/Assessment Patient Status: Established Patient OB Clinic Nursing Assessment: Medication Reconciliation, Update PMH in EMR and Vital Signs OB Clinic Coordination of Care: AMA, Complex Care and Chronic Disease 1-5, Consent,records obtained, informed consent, Education Simp Pt/Fam, Lab and Imaging orders, Results/Orders obtained and Staff clarify orders Special Needs: Heart tones Established Patient Charge Established Patient Point Assignment: 155 Established Patient Point Charge: EP Level 4 (120-155) Assessment & Plan Diagnosis / Problem List (1) Normal in multigravida in second trimester: Status: Acute (2) Advanced maternal age (AMA) in : Status: Acute Plan discuss diet and exercise. ptl precaution, mFM 1 week. rtc 4 week obc Additional Plan Follow Up: 4 Weeks (obc)
== END 2024-10-20 09:08 | disposition home or self-care (01) ==
LOC: HODSOBC 08:10
PROVIDERS: Supervising Provider Advanced Practice Midwife; Visit Provider Advanced Practice Midwife
DX: O09.522 Supervision of elderly multigravida, second trimester (principal); Z3A.22 22 weeks gestation of pregnancy
CPT/HCPCS: 99214; G0463

== ENCOUNTER 2024-11-16 15:38 | Outpatient (AMB) | payer BC, SELFPAY ==
[2024-11-16 16:03] VITALS: BP 129/81; PULSE 80; RESP 17; TEMP 36.5; O2SAT 93; BMI 27.2
--- NOTE | 2024-11-16 16:03 | GYNCLNT_ITS ---
Vital Signs 11/16/24 16:03 Height 1.75 m Height Method Measured Weight 83.518 kg Weight Measurement Method Standing Scale BMI 27.2 BP 129/81 Blood Pressure Source Automatic Cuff Blood Pressure Location Right Upper Arm Position Sitting Respiration 17 Pulse 80 Pulse Source Monitor Temp 97.7 F Temp Source Temporal Artery Scan Pulse Oximetry (%) 93 L Oxygen Delivery Method Room Air Allergies/Home Meds Allergies & Medications Allergies No Known Allergies Allergy (Verified 11/16/24 16:04) Medication Reconciliation No Known Home Medications 07/14/24 [History Confirmed 11/16/24] Intake Visit Data Collection New Patient or Established: Established Patient (seen at [facility] within 3 years) Reason for Visit:: D\E FOLLOW UP Consent obtained for Telemed Visit: No Seen by Clinical Staff ONLY (RN/MA): No Procedures Rn Required: No Do You Feel Safe at Home: Yes Authorities Contacted: N/A PCP or OBGYN visit in last 3 months: Yes Date of Last PCP or OBGYN visit: 10/20/24 Hx Now: No Are you currently on any form of Control: No Pain Present Currently: No Pain Scale Used: Stovall-Javier/Numerical Pain scale:: 0 Smoking Status Smoking Status: Never smoker 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 1. Little interest or pleasure in doing things: not at all PHQ-9 8. Moving or speaking so slowly that other people could have noticed? - Or the opposite - being so fidgety or restless that you have been moving around a lot more than usual: not at all Source: Developed by Drs. Des Mejia, Vivian Aguilar, Clinton Love and colleagues, with an educational hortencia from [employer]. Social History Living Situation History Lives With: Family Housing: House Tobacco History Smoking Status: Never smoker Second Hand Smoke Exposure: No Alcohol History Alcohol Intake: Never Domestic Abuse History Do You Feel Safe at Home: Yes History of Present Illness HPI Narrative 34-year-old 1 para 0 here for follow-up to a D&E that was done November 05 for a 23-week that had multiple anomalies including spina bifida. 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 And bilateral ventriculomegaly. There is also abnormalities of the formation of the brain as well. Patient had been counseled by the perinatologist regarding the defects and the outcomes of the fetus and she elected to have a D&E in [place]. Patient is very sad but she is hopeful that she will get again and have a normal outcome. Patient had questions regarding increased risk and what she can do going forward to help prevent another fetus like this 1. Reports some spotting and cramping otherwise is doing well. The surgery went well and there is no complications. And there is no anesthesia complications. Patient plans to use contraception for a while to . Currently she is taking folate folic acid 4 mg. And will continue to take her vitamin. Denies social habits. Denies surgeries. And denies chronic illness. She is not having sex at this Review of Systems Review of Systems Systems Reviewed: All systems reviewed, normal except as documented Exam Narrative Physical exam: Normal heart rate and rhythm. Lungs clear no wheezes. Abdomen is soft nontender. Uterus well involuted. Perineum is intact no lacerations. No swelling. Small lochia. Negative Homans' sign. 2+ DTRs. No edema no swelling. Breasts are soft General Limitations: no limitations General Appearance: alert, in no apparent distress, comfortable, cooperative, healthy appearing, well developed and well groomed Head Head exam: atraumatic, normocephalic and normal inspection ENT ENT exam: Present normal exam, normal oropharynx and mucous membranes moist Neck Neck exam: Present normal inspection, full ROM and trachea midline Chest Chest inspection: Present normal inspection and symmetric chest wall rise Resp Respiratory exam: Present normal lung sounds bilaterally Psych Psychiatric exam: Present normal affect and normal mood Results Objective Laboratory: Vital signs are stable. Office Procedures OB Clinic LOC & Office Proc's Nursing/Assessment Patient Status: Established Patient OB Clinic Nursing Assessment: Medication Reconciliation, Update PMH in EMR and Vital Signs OB Clinic Coordination of Care: Complex Care and Chronic Disease 1-5, Consent,records obtained, informed consent, Education Simp Pt/Fam and Results/Orders obtained Established Patient Charge Established Patient Point Assignment: 80 Established Patient Point Charge: EP Level 3 (80-115) Assessment & Plan Diagnosis / Problem List (1) Termination of : Status: Acute Plan Continue to take 4 mg folic acid daily. Patient will also be taking folate and continue with the vitamin. She will be scheduled with OB in 4 weeks to follow-up at 6-week and for third lab work. Okay to resume light exercise as she feels comfortable. Patient to monitor for increasing pain and bleeding. Increase rest and fluids Additional Plan Follow Up: 4 Weeks (6wk pp and f/u lab)
== END 2024-11-16 16:38 | disposition home or self-care (01) ==
LOC: HODSOBC 15:38
PROVIDERS: Supervising Provider Advanced Practice Midwife; Visit Provider Advanced Practice Midwife
DX: Z09 Encounter for follow-up examination after completed treatment for conditions other than malignant neoplasm (principal); Z98.890 Other specified postprocedural states; Z87.59 Personal history of other complications of pregnancy, childbirth and the puerperium
CPT/HCPCS: 99213; G0463

== ENCOUNTER 2024-12-21 08:14 | Outpatient (AMB) | payer BC, SELFPAY ==
[2024-12-21 08:25] VITALS: BP 111/73; PULSE 71; RESP 16; TEMP 36.6; O2SAT 96; BMI 27.0
--- NOTE | 2024-12-21 08:25 | AMBOBPPN_ITS ---
Vital Signs 12/21/24 08:25 Height 1.75 m Height Method Stated Weight 82.724 kg Weight Measurement Method Standing Scale BMI 27.0 BP 111/73 Blood Pressure Source Automatic Cuff Blood Pressure Location Left Upper Arm Position Sitting Respiration 16 Pulse 71 Pulse Source Monitor Temp 97.9 F Temp Source Oral Pulse Oximetry (%) 96 Oxygen Delivery Method Room Air Allergies/Home Meds Allergies & Medications Allergies No Known Allergies Allergy (Verified 12/21/24 08:26) Medication Reconciliation No Known Home Medications 07/14/24 [History Confirmed 12/21/24] Intake Visit Data Collection New Patient or Established: Established Patient (seen at [facility] within 3 years) Reason for Visit:: Seen by Clinical Staff ONLY (RN/MA): No Supervisor Ride Assembly Required: No Do You Feel Safe at Home: Yes Authorities Contacted: N/A PCP or OBGYN visit in last 3 months: Yes Hx Now: No Are you currently on any form of Control: No Last menstrual period: 12/02/24 Pain Present Currently: No Pain Scale Used: Stovall-Javier/Numerical Pain scale:: 0 Smoking Status Smoking Status: 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: Past Medical History Past Medical History: No Hx Breast Cancer, No Hx Hypertension, Yes Hx Anemia, No Hx Renal Disease, No Hx Diabetes Mellitus Type 1 and No Hx Diabetes Mellitus Type 2 Questionnaires Covid-19 Vaccine Questionnaire Has patient been vacinated for Covid-19 Have you been vacinated for Covid-19: Yes Social History Living Situation History Lives With: Family Housing: House Tobacco History Smoking Status: Never smoker Second Hand Smoke Exposure: No Alcohol History Alcohol Intake: Never Domestic Abuse History Do You Feel Safe at Home: Yes EPDS - PP Depression Screening [place] Pospartum Depression Screen I have been able to laugh and see the funny side of things: (0) As much as I always could I have looked forward with enjoyment to things: (0) As much as I ever did I have blamed myself unnecessarily when things went wrong: (0) No, never I have been anxious or worried for no good reason: (0) No, not at all I have felt scared or panicky for no very good reason: (0) No, not at all Things have been getting on top of me: (0) No, I have been coping as well as ever I have been so unhappy that I have had difficulty sleeping: (0) No, not at all I have felt sad or miserable: (0) No, not at all I have been so unhappy that I have been crying: (0) No, never The thought of harming myself has occurred to me: (0) Never Total Score: EPDS Score: Referral is indicated for score of 9 or more, suicidal, or if provider believes patient is depressed regardless of score.: 0 EPDS completed yes Care OB Visit Log OB Flowsheet Initial Weight: Not Recorded Date -?-?-?-?-?-?-?-?-?-?-?-?- EGA Weight BP Alb Glu CTX Pres Fundal ht FHR Mov Dilation Station Effacement Hx Notes Visit Note 07/14/24 -?-?-?-?-?-?-?-?-?-?-?-?- 8w 1d 81.363 kg 99/68 absent 8.0 160 abs ent Camelia is a 3 para 0 SAB 1 TAB 1. Patient recent SAB was in March. Last period was for FET May 14, 2024 and this gives due date February 16, 2025. Patient is a transfer from Dr Giraldo's office. Medical release for records was obtained. Patient complains of increasing nausea, fatigue, bloating. Denies SAB complaints. Very happy with the . Currently taking vitamins. I advised patient to take B6 twice daily and then I discussed the bands and how to use those for her complaints of nausea. Discussed other comfort measures for nausea vomiting and fatigue in early . I will schedule her MFM NT. And I will call patient to ordered labs and NIPT and screening labs after review of records from Dr. Faulkner 08/02/24 -?-?-?-?-?-?-?-?-?-?-?-?- 10w 6d 83.461 kg 143/78 absent 11 168 ab sent Denies SAB complaints, nausea improved with sea bands and vitamin B6, mfm appointment scheduled, ordered NIPT and carrier screens. comfort measure for n/v given. rtc 4 week 09/01/24 -?-?-?-?-?-?-?-?-?-?-?-?- 15w 1d 81.647 kg 110/66 absent unknown 15 155 active Doing well. light FM, c/o nasal congestion, uses OTC, afebrile. no SAB complaints. mfm for 10/11/24 keep MFM appointment. discuss sab precaution, discuss diet wnd weight. comfort measure for congestion. AFP. rtc 4 week 10/20/24 -?-?-?-?-?-?-?-?-?-?-?-?- 22w 1d 86.183 kg 114/73 absent unknown 22 145 active questions answered about . + fm, no ptl complaints discuss comfort measure for 2nd tri, question answered re , mfm appointment 1 week. discuss ptl prec, rtc 4 week obc CARI Calculator Estimated Delivery Date Method Current WG Current Estimate 02/22/25 Ultrasound #1 31w 5d Other Estimates 02/18/25 LMP (Certain) 32w 2d Notes Visit Date: 10/20/24 Last Updated by: Amna Olivarez CNM 10/11/24: NIPT- Visit Date: 09/01/24 Last Updated by: Amna Olivarez CNM 34 yo LMP 05/14/24. EDC 02/16/25. sono 06/25/24: 5w3. EDC: 02/22/25. NIPT-,SMA-,CF-, O+,abs-, rpr;;nr, rub imm, hbsag-,hiv-,HC-, GC/CT-, HPI Interval History: Post-procedure consultation one month after dilatation and evacuation, cramping on the left side, irregular bleeding Jenni Teague presents for consultation one month post dilatation and evacuation for a 23-week , reporting cramping on the left side and irregular bleeding. Her last menstrual period was from December 01 to December 10. The patient describes experiencing cramping localized to the left side, though the exact onset and duration are not specified. She also reports irregular bleeding, which is noted to be a common occurrence post-procedure as ovulation can take up to 3 months to return. The severity and timing of these symptoms are not explicitly stated. Jenni does not mention any aggravating or alleviating factors, radiation of pain, or associated symptoms. Jenni inquires about ovulation and egg reserve, suggesting concerns about her future fertility. She has requested and been granted an extension of her medical leave until February 04, 2025, which may indicate that her current symptoms are impacting her ability to work. Surgical History: - Dilatation and evacuation for a 23-week , approximately one month ago Obstetric History: - GPAL: A1 L0 - history: - Dilatation and evacuation performed at 23 weeks gestation, approximately one month ago Social History: - Currently on medical leave, extension requested until February 04, 2025 Exam General General Appearance: alert, in no apparent distress and healthy appearing Head Head exam: atraumatic Neck Neck exam: Present normal inspection and trachea midline Chest Chest inspection: Present normal inspection and symmetric chest wall rise External exam: Present normal external exam; Absent tenderness Neuro Neurological exam: Present oriented X3 Psych Psychiatric exam: Present normal affect and normal mood Office Procedures OB Clinic LOC & Office Proc's Nursing/Assessment Patient Status: Established Patient OB Clinic Nursing Assessment: Medication Reconciliation, Update PMH in EMR and Vital Signs OB Clinic Coordination of Care: Complex Care and Chronic Disease 1-5, Consent,records obtained, informed consent, Education Simp Pt/Fam, Lab and Imaging orders, Results/Orders obtained and Staff clarify orders Established Patient Charge Established Patient Point Assignment: 105 Post Follow-up Visit Post Follow up Visit: Yes Assessment & Plan Diagnosis / Problem List (1) Pelvic pain: Status: Acute (2) Termination of : Status: Acute Plan Post-procedure complications Assessment: Patient is experiencing cramping on the left side and irregular bleeding one month after dilatation and evacuation procedure for a 23-week . Last menstrual period was from December 01 to December 10. These symptoms are likely related to the post-procedure recovery process, as ovulation can take up to 3 months to return following such procedures, potentially causing irregular bleeding. Plan: - Perform ultrasound to ensure all effects have cleared - Order blood work to confirm resolution of -related changes - Advise patient to take 4 mg of folic acid daily - Recommend regular multivitamin without iron instead of vitamins - Extend medical leave until February 04, 2025 - Order Anti-M?llerian Hormone (AMH) test to assess ovarian reserve - Patient to proceed with tests after January 05 when insurance becomes active - Provide work leave letter
== END 2024-12-21 09:19 | disposition home or self-care (01) ==
LOC: HODSOBC 08:14
PROVIDERS: Supervising Provider Obstetrics & Gynecology; Visit Provider Obstetrics & Gynecology
DX: R10.2 Pelvic and perineal pain (principal)
CPT/HCPCS: 59430

== ENCOUNTER → 2024-12-23 | Outpatient (CLI) | payer BC, SELFPAY ==
--- NOTE | 2024-12-23 15:10 | XR_ITS ---
Examination: Pelvic ultrasound, transabdominal, complete Technique: Transabdominal ultrasound of the pelvis performed using grayscale imaging Date and time of exam: December 23, 2024 1539 hrs. Indications: Post elective and 24 weeks done at [facility] November 05, 2024, vaginal bleeding and pelvic cramping Findings: Uterus 10.4 cm, linear opaque foreign body extending from the fundus to the cervix, consider foreign body, the largest area measuring 3.4 cm Endometrial stripe 11 mm Right ovary 2.6 cm arterial flow Left ovary 3.2 cm arterial flow 18 mm left ovarian cystic region Impression: Large apparent foreign body extending from the fundus of the cervix, consider CT pelvis without intravenous contrast follow-up
--- NOTE | 2024-12-23 15:10 | XR_ITS ---
Examination: Transvaginal ultrasound of the pelvis, complete Technique: Transvaginal sonographic images pelvis performed using macias scale imaging Exam date and time: December 23, 2024 1536 hrs. Indications: Elective 11/05/2024 with vaginal bleeding and cramping beginning November 05, 2024 Findings: Extensive foreign body extending from the fundus of the cervix in the endometrium, the largest area 3.4 cm Endometrial stripe 1.1 cm Right ovary 2.6 cm arterial flow Left ovary 3.2 cm arterial flow with 17 mm cyst Impression: Large apparent foreign body extending from the fundus of the uterus to the cervix Consider CT scan pelvis without intravenous contrast follow-up.
[2024-12-23 16:32] LABS: Misc Send Out* See Sep Rpt
[2024-12-23 17:24] LABS: Follicle Stimulating Hormone 4.67 mIU/mL (See Note)
== END | disposition home or self-care (01) ==
LOC: CDIM 15:05 → COPL 16:18
PROVIDERS: PCP Family Medicine; Referring Provider Obstetrics & Gynecology; Visit Provider Radiology Diagnostic Radiology
DX: N93.9 Abnormal uterine and vaginal bleeding, unspecified (principal); R10.2 Pelvic and perineal pain
CPT/HCPCS: 36415; 76830; 76856; 83001

== ENCOUNTER → 2025-01-24 | Outpatient (CLI) | payer BC, SELFPAY ==
[2025-01-24 14:11] LABS: Basophils # (Auto) 0.0 Thou/mm3 (0.0-0.2); Basophils % (Auto) 1 % (0-2.5); Eosinophils # (Auto) 0.1 Thou/mm3 (0.0-0.5); Eosinophils % (Auto) 1 % (0-10); Hematocrit 37.2 % (36.0-46.0); Hemoglobin 11.9 g/dL (12.0-16.0); Immature Granulocytes Auto 0.04 Thou/mm3 (0.00-0.00); Lymphocytes # (Auto) 1.1 Thou/mm3 (1.0-4.8); Lymphocytes % (Auto) 16 % (10-50); Mean Corpuscular HGB Conc 32.0 g/dl (31.0-37.0); Mean Corpuscular Hemoglobin 28.9 pg (25.0-35.0); Mean Corpuscular Volume 90 fL (80-100); Monocytes # (Auto) 0.5 Thou/mm3 (0.0-0.8); Monocytes % (Auto) 7 % (0-12); Neutrophils # (Auto) 5.1 Thou/mm3 (1.8-7.7); Neutrophils % (Auto) 75 % (37-80); Nucleated Red Blood Cell # 0.00 Thou/mm3 (0.00-0.00); Nucleated Red Blood Cell % 0 /100 WBC (0); Platelet Count 323 Thou/mm3 (140-440); RDW Standard Deviation 45.5 fL (36.4-46.3); Red Blood Count 4.12 Miln/mm3 (4.00-5.20); White Blood Count 6.8 Thou/mm3 (3.6-11.0)
[2025-01-24 14:19] LABS: Alanine Aminotransferase 18 U/L (10-49); Albumin, Serum 4.4 gm/dL (3.5-5.0); Albumin/Globulin Ratio 1.2 (1.2-2.2); Alkaline Phosphatase 85 U/L (46-116); Anion Gap 9 (7-16); Aspartate Amino Transferase 19 U/L (0-34); BUN/Creatinine Ratio 8 Ratio (12-20); Bilirubin,Total 0.3 mg/dL (0.3-1.2); Blood Urea Nitrogen 7 mg/dL (9-23); Calcium 9.2 mg/dL (8.3-10.6); Calcium (Corrected) 9.2 mg/dL (8.5-10.1); Carbon Dioxide 25.4 mMol/L (20.0-31.0); Chloride 106 mMol/L (98-107); Creatinine (Component) 0.9 mg/dL (0.6-1.3); Globulin 3.6 gm/dL (2.3-3.5); Glucose 88 mg/dL (74-106); Osmolality,Calculated 276 (275-295); Potassium 4.5 mMol/L (3.4-5.1); Sodium 140 mMol/L (136-145); Total Protein 8.0 gm/dL (5.7-8.2); eGFR > 60 See Note
[2025-01-24 14:38] LABS: Cocci Serology, IgM Positive (Negative)
[2025-01-24 14:39] LABS: Cocid Sro, CF/ID (UCD) NO CHG* See Sep Rpt
[2025-01-24 15:15] LABS: Sed Rate (ESR) 53 mm/hr (0-20)
== END | disposition home or self-care (01) ==
LOC: COPL 13:26
PROVIDERS: PCP Family Medicine; Referring Provider Family Medicine; Visit Provider Family Medicine
DX: B38.2 Pulmonary coccidioidomycosis, unspecified (principal); L29.9 Pruritus, unspecified
CPT/HCPCS: 36415; 80053; 85025; 85652; 86635

== ENCOUNTER → 2025-01-27 | Outpatient (CLI) | payer BC, SELFPAY ==
--- NOTE | 2025-01-27 12:21 | XR_ITS ---
EXAMINATION: PA chest single view TECHNIQUE: Upright PA chest single view Date and time: January 27, 2025, 1314 hours INDICATIONS: Shortness of breath several days FINDINGS: Abnormal parenchymal disease in the left upper lobe Normal heart size Moderate thoracic dextroscoliosis No pulmonary edema IMPRESSION: Significant parenchymal disease left upper lobe which may relate to coccidioidomycosis, suggest continued chest imaging follow-up
== END | disposition home or self-care (01) ==
LOC: CDIM 12:18
PROVIDERS: PCP Family Medicine; Referring Provider Family Medicine; Visit Provider Family Medicine
DX: R91.8 Other nonspecific abnormal finding of lung field (principal)
CPT/HCPCS: 71045

== ENCOUNTER 2025-02-01 10:56 | Outpatient (AMB) | payer BC, SELFPAY ==
[2025-02-01 11:08] VITALS: BP 105/72; PULSE 100; RESP 18; TEMP 36.7; O2SAT 98; BMI 25.6
--- NOTE | 2025-02-01 11:08 | GYNCLNT_ITS ---
Vital Signs 02/01/25 11:08 Height 1.75 m Height Method Stated Weight 78.471 kg Weight Measurement Method Standing Scale BMI 25.6 BP 105/72 Blood Pressure Source Automatic Cuff Blood Pressure Location Right Upper Arm Position Sitting Respiration 18 Pulse 100 Pulse Source Monitor Temp 98.0 F Temp Source Temporal Artery Scan Pulse Oximetry (%) 98 Oxygen Delivery Method Room Air Allergies/Home Meds Allergies & Medications Allergies No Known Allergies Allergy (Verified 02/01/25 11:09) Medication Reconciliation No Known Home Medications 07/14/24 [History Confirmed 02/01/25] Intake Visit Data Collection New Patient or Established: Established Patient (seen at [facility] within 3 years) Reason for Visit:: RESULTS Seen by Clinical Staff ONLY (RN/MA): No 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 Do You Feel Safe at Home: Yes Authorities Contacted: N/A PCP or OBGYN visit in last 3 months: Yes Date of Last PCP or OBGYN visit: 12/21/24 Hx Now: No Are you currently on any form of Control: No Last menstrual period: 01/30/25 Pain Present Currently: No Pain Scale Used: Stovall-Javier/Numerical Pain scale:: 0 Smoking Status Smoking Status: Never smoker Immunizations Flu Vaccine in the Last 12 Months: No Flu Vaccine Exclusion Criteria: No Exclusion Criteria 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 1. Little interest or pleasure in doing things: not at all 2. Feeling down, depressed, or hopeless: not at all Total score: 0 PHQ-9 3. Trouble falling or staying asleep, or sleeping too much: Not at all 4. Feeling tired or having little energy: Not at all 5. Poor appetite or overeating: Not at all 6. Feeling bad about yourself - or that you are a failure or have let yourself or your family down: Not at all 7. Trouble concentrating on things, such as reading the newspaper or watching television: Not at all 8. Moving or speaking so slowly that other people could have noticed? - Or the opposite - being so fidgety or restless that you have been moving around a lot more than usual: not at all 9. Thoughts that you would be better off or of hurting yourself in some way: Not at all Total score: 0 If you checked off any problems, how difficult have these problems made it for you to do your work, take care of things at home, or get along with other people?: not difficult at all Source: Developed by Drs. Des Mejia, Vivian Aguilar, Clinton Love and colleagues, with an educational hortencia from [employer]. Depression screen completed yes Social History Living Situation History Marital Status: Lives With: Family Housing: House Tobacco History Smoking Status: Never smoker Second Hand Smoke Exposure: No Alcohol History Alcohol Intake: Never Domestic Abuse History Do You Feel Safe at Home: Yes History of Present Illness HPI Narrative Jenni Teague presents for follow-up of valley fever and evaluation of a retained IUD fragment. Around the week of January 19, she developed chills without fever, followed by a skin rash and nodules. 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 Hdez, whom she saw on January 24. She is currently taking 2 pills daily as prescribed, with follow-up scheduled in 2 weeks. The patient reports significant functional impairment, stating I can barely walk now and I was jogging before, but now I can't walk. She experiences muscle aches that have severely limited her mobility and ability to work. She received a work excuse letter from Dr. Hdez for the following week but feels she needs additional time off due to her symptoms. Regarding her gynecologic history, she had an IUD in place for 9 years that became stuck during removal. A new IUD was placed, but she reports feeling something up there. Ultrasound imaging revealed a linear opaque foreign body in the uterus, likely a retained piece of the previous IUD. She is currently taking fluconazole as part of her valley fever treatment and has been advised to avoid conceiving while on this medication. The patient is adherent to her current treatment regimen and has had recent healthcare interactions including the infectious disease consultation and imaging studies. She expresses concerns about potential workplace exposure restrictions given her condition and treatment status. ROS: General: Positive for chills, negative for fever. Skin: Positive for rash and nodules. Musculoskeletal: Positive for muscle aches and difficulty walking. Ge nitourinary: Positive for sensation of foreign body in uterus. Exam General General Appearance: alert, in no apparent distress and healthy appearing Head Head exam: atraumatic Neck Neck exam: Present normal inspection and trachea midline Chest Chest inspection: Present normal inspection and symmetric chest wall rise External exam: Present normal external exam; Absent tenderness Neuro Neurological exam: Present oriented X3 Psych Psychiatric exam: Present normal affect and normal mood Office Procedures OBC Clinic LOC & Office Proc's Nursing/Assessment Patient Status: Established Patient OB Clinic Nursing Assessment: Medication Reconciliation, Update PMH in EMR and Vital Signs OB Clinic Coordination of Care: Complex Care and Chronic Disease 1-5, Education Complex Pt/Fam, Consent,records obtained, informed consent, Results/Orders obtained and Staff clarify orders Established Patient Charge Established Patient Point Assignment: 95 Established Patient Point Charge: EP Level 3 (80-115) Assessment & Plan Diagnosis / Problem List (1) Pelvic pain: Status: Acute (2) Retained intrauterine contraceptive device (IUD): Status: Acute (3) Coccidioidomycosis, unspecified: Status: Acute Plan Valley Fever: - Patient tested positive for valley fever with characteristic symptoms beginning around the week of the 15th. - Symptoms include chills without fever, skin rash, nodules, and severe muscle aches limiting mobility. - Currently under care of Dr. Hdez from infectious disease. Plan: - Continue current antifungal treatment (2 pills daily) as prescribed by Dr. Hdez. - Treatment duration will be 3 to 6 months to prevent regrowth of fungus. - Expect improvement in first two weeks with gradual return to normal activity: ? Progress from walking to jogging once muscles improve. ? Fresh air exposure recommended. - Work excuse extension to be discussed with Dr. Hdez once surgery date established. - Avoid conception while on fluconazole treatment. - Start folic acid one month before attempting to conceive. Retained IUD Fragment: - Ultrasound reveals linear opaque foreign body in uterus, likely retained IUD piece. - Patient had IUD for 9 years that became stuck during removal with new IUD placement. - Continues to feel something present in uterus. Plan: - Hysteroscopy planned to visualize and remove retained IUD fragment. - Intraoperative x-ray will be used to locate and remove the fragment. - Insurance authorization to be submitted today. - Patient will be contacted once insurance approval obtained.
== END 2025-02-01 11:33 | disposition home or self-care (01) ==
LOC: HODSOBC 10:56
PROVIDERS: Supervising Provider Obstetrics & Gynecology; Visit Provider Obstetrics & Gynecology
DX: T83.39XA Other mechanical complication of intrauterine contraceptive device, initial encounter (principal); B38.0 Acute pulmonary coccidioidomycosis; Y76.2 Prosthetic and other implants, materials and accessory obstetric and gynecological devices associated with adverse incidents; Y84.8 Other medical procedures as the cause of abnormal reaction of the patient, or of later complication, without mention of misadventure at the time of the procedure
CPT/HCPCS: 99213; G0463

== ENCOUNTER 2025-02-17 07:35 | Day surgery (SDC) | payer BC, SELFPAY ==
[2025-02-11 11:42] VITALS: BMI 25.8
[2025-02-11 12:22] LABS: Basophils # (Auto) 0.0 Thou/mm3 (0.0-0.2); Basophils % (Auto) 1 % (0-2.5); Eosinophils # (Auto) 0.1 Thou/mm3 (0.0-0.5); Eosinophils % (Auto) 2 % (0-10); Hematocrit 36.3 % (36.0-46.0); Hemoglobin 11.4 g/dL (12.0-16.0); Immature Granulocytes Auto 0.02 Thou/mm3 (0.00-0.00); Lymphocytes # (Auto) 1.4 Thou/mm3 (1.0-4.8); Lymphocytes % (Auto) 18 % (10-50); Mean Corpuscular HGB Conc 31.4 g/dl (31.0-37.0); Mean Corpuscular Hemoglobin 27.6 pg (25.0-35.0); Mean Corpuscular Volume 88 fL (80-100); Monocytes # (Auto) 0.5 Thou/mm3 (0.0-0.8); Monocytes % (Auto) 6 % (0-12); Neutrophils # (Auto) 5.5 Thou/mm3 (1.8-7.7); Neutrophils % (Auto) 73 % (37-80); Nucleated Red Blood Cell # 0.00 Thou/mm3 (0.00-0.00); Nucleated Red Blood Cell % 0 /100 WBC (0); Platelet Count 389 Thou/mm3 (140-440); RDW Standard Deviation 45.5 fL (36.4-46.3); Red Blood Count 4.13 Miln/mm3 (4.00-5.20); White Blood Count 7.6 Thou/mm3 (3.6-11.0)
[2025-02-11 12:39] LABS: HCG,Qualitative Serum Negative
[2025-02-11 12:41] LABS: Alanine Aminotransferase 13 U/L (10-49); Albumin, Serum 4.5 gm/dL (3.5-5.0); Albumin/Globulin Ratio 1.3 (1.2-2.2); Alkaline Phosphatase 87 U/L (46-116); Anion Gap 5 (7-16); Aspartate Amino Transferase 43 U/L (0-34); BUN/Creatinine Ratio 14 Ratio (12-20); Bilirubin,Total 0.2 mg/dL (0.3-1.2); Blood Urea Nitrogen 13 mg/dL (9-23); Calcium 9.5 mg/dL (8.3-10.6); Calcium (Corrected) 9.5 mg/dL (8.5-10.1); Carbon Dioxide 28.9 mMol/L (20.0-31.0); Chloride 106 mMol/L (98-107); Creatinine (Component) 0.9 mg/dL (0.6-1.3); Estimated Creatinine Clearance 91.2 mL/min (>60); Globulin 3.5 gm/dL (2.3-3.5); Glucose 87 mg/dL (74-106); Osmolality,Calculated 278 (275-295); Potassium 4.4 mMol/L (3.4-5.1); Sodium 140 mMol/L (136-145); Total Protein 8.0 gm/dL (5.7-8.2); eGFR > 60 See Note
[2025-02-17] VITALS (9 sets, daily range): BP systolic 112–141; BP diastolic 63–89; PULSE 72–96; RESP 14–20; TEMP 36.2–36.6; O2SAT 95–98; BMI 25.0
--- NOTE | 2025-02-17 10:50 | SUR.PHASEI ---
pt received from OR in recovery bay 6. pt asleep but responds to voice, breathing unlabored on room air. v/s stable. pt dressing peripad cdi. report received from Nevin Ruiz and Dr. Morgan.
--- NOTE | 2025-02-17 10:51 | PD.GYNPROC ---
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 Identity was confirmed with two patient identifiers. The patient was placed in dorsal lithotomy position. Anesthesia was administered, and the perineum and vagina were prepped and draped in the usual sterile fashion. A surgical timeout was completed. The fluid management system was connected, primed, and functional. The inflow and outflow tubing were secured, and the fluid deficit was set to zero at the start of the procedure. A vaginal speculum was inserted, and the cervix was visualized. It was grasped with atraumatic tenaculum forceps and placed under gentle traction. The endocervical canal was serially dilated to 7 mm using graduated dilators. The hysteroscope was introduced under direct visualization. Upon entry, a broken intrauterine device fragment was visualized in the lower endocervical canal, with attached strings extending into the cervical os. Initial attempts were made using hysteroscopic grasping forceps, but the fragment appeared embedded in the endocervical wall and could not be dislodged. Subsequently, a pair of alligator forceps was introduced under direct hysteroscopic guidance. With careful manipulation, the retained IUD fragment was successfully dislodged and removed intact. The hysteroscope was reintroduced, and a thorough inspection of the endometrial cavity and endocervical canal was performed. The endometrial cavity appeared normal. No residual fragments or abnormalities were noted. All instruments were withdrawn. The fluid deficit was reviewed and documented. Hemostasis was confirmed. The cervix and vagina were inspected and intact. The patient tolerated the procedure well and was transferred to recovery in stable condition. All sponge and instrument counts were correct ?2. Specimen: other Estimated blood loss (ml): 5 Findings: Hysteroscopic fluid deficit 135 cc Complications: none Surgical staff Operation Date: 02/17/25 09:45 <No data on this case meets the specified criteria> Diagnosis Problem List Completed Was Problem List Reviewed/Reconciled?: Yes
--- NOTE | 2025-02-17 11:45 | SUR.PHASEII ---
Pt. meets criteria for discharge, VSS, no c/o pain or nausea at this time, no active vaginal bleeding at this time, IV discontinued without complications, discharge instructions provided to pt. and pt.'s friend, verbalized understanding. Pt. escorted to vehicle via w/c with all of belongings by staff.
== END 2025-02-17 11:45 | disposition home or self-care (01) ==
PROVIDERS: PCP Family Medicine; Referring Provider Obstetrics & Gynecology; Visit Provider Obstetrics & Gynecology
PROC: 0UJD8ZZ Inspection of Uterus and Cervix, Via Natural or Artificial Opening Endoscopic (ICD-10-PCS; CPT 58555; principal; 2025-02-17 09:30)
DX: T83.89XA Other specified complication of genitourinary prosthetic devices, implants and grafts, initial encounter (principal); B38.9 Coccidioidomycosis, unspecified
CPT/HCPCS: 58562; 36415; 80053; 84703; 85025; 86850; 86900; 86901; A4217; A4649; J1100; J2704; J2765; J3010; J3490

== ENCOUNTER → 2025-02-21 | Outpatient (CLI) | payer BC, SELFPAY ==
[2025-02-21 11:39] LABS: Alanine Aminotransferase 10 U/L (10-49); Albumin, Serum 4.3 gm/dL (3.5-5.0); Albumin/Globulin Ratio 1.2 (1.2-2.2); Alkaline Phosphatase 86 U/L (46-116); Anion Gap 9 (7-16); Aspartate Amino Transferase 43 U/L (0-34); BUN/Creatinine Ratio 13 Ratio (12-20); Bilirubin,Total 0.4 mg/dL (0.3-1.2); Blood Urea Nitrogen 12 mg/dL (9-23); Calcium 9.6 mg/dL (8.3-10.6); Calcium (Corrected) 9.6 mg/dL (8.5-10.1); Carbon Dioxide 26.9 mMol/L (20.0-31.0); Chloride 103 mMol/L (98-107); Creatinine (Component) 0.9 mg/dL (0.6-1.3); Globulin 3.7 gm/dL (2.3-3.5); Glucose 84 mg/dL (74-106); Osmolality,Calculated 276 (275-295); Potassium 4.1 mMol/L (3.4-5.1); Sodium 139 mMol/L (136-145); Total Protein 8.0 gm/dL (5.7-8.2); eGFR > 60 See Note
[2025-02-21 11:44] LABS: Sed Rate (ESR) 70 mm/hr (0-20)
[2025-02-21 12:10] LABS: Cocci Serology, IgM Negative (Negative)
[2025-02-22 11:51] LABS: Cocci Serology, IgG Negative (Negative)
== END | disposition home or self-care (01) ==
LOC: COPL 10:30
PROVIDERS: PCP Family Medicine; Referring Provider Family Medicine; Visit Provider Family Medicine
DX: B38.2 Pulmonary coccidioidomycosis, unspecified (principal)
CPT/HCPCS: 36415; 80053; 85652; 86331; 86635

== ENCOUNTER 2025-02-22 14:48 | Outpatient (AMB) | payer BC, SELFPAY ==
[2025-02-22 15:16] VITALS: BP 118/72; PULSE 88; RESP 18; TEMP 36.2; O2SAT 98
--- NOTE | 2025-02-22 15:16 | GYNCLNT_ITS ---
Vital Signs 02/22/25 15:16 Weight 77.224 kg Weight Measurement Method Standing Scale BP 118/72 Blood Pressure Source Automatic Cuff Blood Pressure Location Left Upper Arm Position Sitting Respiration 18 Pulse 88 Pulse Source Monitor Temp 97.2 F Temp Source Oral Pulse Oximetry (%) 98 Oxygen Delivery Method Room Air Allergies/Home Meds Allergies & Medications Allergies No Known Allergies Allergy (Verified 03/09/25 10:05) Medication Reconciliation fluconazole 200 mg tablet 200 mg PO Q12H 02/11/25 [History Confirmed 03/09/25] docusate sodium 100 mg capsule (Stool Softener) 100 mg PO QDAY 30 days #30 caps 03/09/25 [Rx] ibuprofen 800 mg tablet 800 mg PO Q6H PRN pain 10 days #40 tabs 03/09/25 [Rx] ondansetron 4 mg disintegrating tablet 4 mg PO Q6H PRN nausea and vomiting 30 days #120 tabs 03/09/25 [Rx] Intake Visit Data Collection New Patient or Established: Established Patient (seen at [facility] within 3 years) Reason for Visit:: POST OP Seen by Clinical Staff ONLY (RN/MA): No Glass Lathe Operator Required: No Do You Feel Safe at Home: Yes Authorities Contacted: N/A PCP or OBGYN visit in last 3 months: Yes Date of Last PCP or OBGYN visit: 02/17/25 Are you currently on any form of Control: No Last menstrual period: 01/31/25 Pain Present Currently: No Pain Scale Used: Stovall-Javier/Numerical Pain scale:: 0 Smoking Status Smoking Status: Never smoker Immunizations Flu Vaccine in the Last 12 Months: No Flu Vaccine Exclusion Criteria: Refused by Patient 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 Menstrual regularity: regular Flow: normal Monthly: Yes Menopausal: No 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 1. Little interest or pleasure in doing things: not at all 2. Feeling down, depressed, or hopeless: not at all Total score: 0 PHQ-9 3. Trouble falling or staying asleep, or sleeping too much: Not at all 4. Feeling tired or having little energy: Not at all 5. Poor appetite or overeating: Not at all 6. Feeling bad about yourself - or that you are a failure or have let yourself or your family down: Not at all 7. Trouble concentrating on things, such as reading the newspaper or watching television: Not at all 8. Moving or speaking so slowly that other people could have noticed? - Or the opposite - being so fidgety or restless that you have been moving around a lot more than usual: not at all 9. Thoughts that you would be better off or of hurting yourself in some way: Not at all Total score: 0 If you checked off any problems, how difficult have these problems made it for you to do your work, take care of things at home, or get along with other people?: not difficult at all Source: Developed by Drs. Des Mejia, Vivian Aguilar, Clinton Love and colleagues, with an educational hortencia from [employer]. Depression screen completed yes Social History Living Situation History Lives With: Family Housing: House Tobacco History Smoking Status: Never smoker Second Hand Smoke Exposure: No Alcohol History Alcohol Intake: Current Domestic Abuse History Do You Feel Safe at Home: Yes History of Present Illness HPI Narrative Jenni Teague presents for follow-up after recent removal of an embedded IUD fragment that had been retained in her uterine wall for approximately 12 years. The IUD was originally placed in 2012 and was partially removed in 2022, leaving a portion of the stem embedded in the uterine wall. During the recent visit, the remaining IUD fragment was successfully extracted using camera guidance after initial attempts to remove it by pulling the threads were unsuccessful. The patient reports that her bladder fever has cleared up following the procedure. 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 She denies any current symptoms related to the IUD removal. She has a history of two prior pregnancies, both terminated. The most recent in 2022 was terminated at approximately 24 weeks gestation due to spina bifida in combination with other anomalies. The patient notes that genetic testing for immune diseases including lupus were all negative, but spina bifida was not detected on routine screening blood work. She expresses concern about the potential impact the retained IUD fragment may have had on her previous outcomes. The patient is planning for future attempts in the spring and inquires about preconception care. She is currently holding vitamins and folic acid. She has been taking fluconazole with liver function monitoring, possibly continuing just this week. She is a female patient with an obstetric history of G2 T0 L0. She has undergone IUD placement in 2012, partial IUD removal in 2022, and recent embedded IUD fragment extraction. 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 Exam General General Appearance: alert, in no apparent distress and healthy appearing Head Head exam: atraumatic Neck Neck exam: Present normal inspection and trachea midline Chest Chest inspection: Present normal inspection and symmetric chest wall rise External exam: Present normal external exam; Absent tenderness Neuro Neurological exam: Present oriented X3 Psych Psychiatric exam: Present normal affect and normal mood Office Procedures OBC Clinic LOC & Office Proc's Nursing/Assessment Patient Status: Established Patient OB Clinic Nursing Assessment: Medication Reconciliation, Update PMH in EMR and Vital Signs OB Clinic Coordination of Care: Consent,records obtained, informed consent, Education Simp Pt/Fam, Lab and Imaging orders, Results/Orders obtained and Staff clarify orders Established Patient Charge Established Patient Point Assignment: 80 Established Patient Point Charge: EP Level 3 (80-115) Assessment & Plan Diagnosis / Problem List (1) Other mechanical complication of intrauterine contraceptive device, initial encounter: Status: Acute (2) Coccidioidomycosis, unspecified: Status: Acute (3) Retained intrauterine contraceptive device (IUD): Status: Acute (4) Postoperative pain: Status: Acute Plan Embedded IUD Fragment Removal: - Successful removal of embedded IUD fragment present for approximately 12 years since 2012. - Fragment consisted of stem portion embedded in uterine wall after original IUD removal in 2022. - Fragment visualized with camera and successfully extracted after initial thread traction failed. Plan: - IUD fragment successfully removed. - Allow healing time before attempting conception. Valley Fever on Fluconazole Treatment: - Currently being treated for valley fever with fluconazole. - Recent blood work performed to monitor liver function. - Symptoms have resolved including bladder-related symptoms. Plan: - Continue fluconazole treatment as prescribed by treating physician. - Await results of liver function monitoring. - Avoid while on fluconazole due to teratogenic risk in first trimester. - Allow one month after fluconazole completion for medication clearance before attempting conception. Preconception Counseling: - Patient desires in spring after previous complicated by spina bifida at 24 weeks. - Previous genetic testing was negative, and recent rheumatologic workup for lupus and other autoimmune conditions was negative. - Patient is otherwise healthy with good nutrition. Plan: - Start folic acid supplementation at beginning of cycle when attempting conception. - Prescribe vitamins. - Time ovulation and intercourse appropriately. - Present for care immediately upon positive test. - Perform early genetic testing at 9-10 weeks gestation using more sensitive panels including whole genome panel rather than routine screening. - Avoid additional supplements as not needed with adequate nutrition. - Plan spring timing for conception attempts to allow adequate healing time.
== END 2025-02-22 15:38 | disposition home or self-care (01) ==
LOC: HODSOBC 14:48
PROVIDERS: Supervising Provider Obstetrics & Gynecology; Visit Provider Obstetrics & Gynecology
DX: Z48.816 Encounter for surgical aftercare following surgery on the genitourinary system (principal); G89.18 Other acute postprocedural pain; B38.0 Acute pulmonary coccidioidomycosis
CPT/HCPCS: 99213; G0463

== ENCOUNTER 2025-03-09 09:46 | Outpatient (AMB) | payer BC, SELFPAY ==
[2025-03-09 10:05] VITALS: BP 117/66; PULSE 81; RESP 16; TEMP 36.5; O2SAT 97; BMI 24.4
--- NOTE | 2025-03-09 10:05 | AMB.GYNCLNOT ---
Vital Signs 03/09/25 10:05 Height 1.75 m Height Method Stated Weight 74.956 kg Weight Measurement Method Standing Scale BMI 24.4 BP 117/66 Blood Pressure Source Automatic Cuff Blood Pressure Location Left Upper Arm Position Sitting Respiration 16 Pulse 81 Pulse Source Monitor Temp 97.7 F Temp Source Oral Pulse Oximetry (%) 97 Oxygen Delivery Method Room Air Allergies/Home Meds Allergies & Medications Allergies No Known Allergies Allergy (Verified 03/09/25 10:05) Medication Reconciliation fluconazole 200 mg tablet 200 mg PO Q12H 02/11/25 [History Confirmed 03/09/25] docusate sodium 100 mg capsule (Stool Softener) 100 mg PO QDAY 30 days #30 caps 03/09/25 [Rx] ibuprofen 800 mg tablet 800 mg PO Q6H PRN pain 10 days #40 tabs 03/09/25 [Rx] ondansetron 4 mg disintegrating tablet 4 mg PO Q6H PRN nausea and vomiting 30 days #120 tabs 03/09/25 [Rx] Intake Visit Data Collection New Patient or Established: Established Patient (seen at [facility] within 3 years) Reason for Visit:: POST OP FOLLOW UP/ REQUESTING PELVIC CHECK Seen by Clinical Staff ONLY (RN/MA): No Filler Room Attendant Required: No Do You Feel Safe at Home: Yes Authorities Contacted: N/A PCP or OBGYN visit in last 3 months: Yes Hx Now: No Are you currently on any form of Control: No Last menstrual period: 03/06/25 Pain Present Currently: Yes Pain Location: Abdomen (LOWER ) Pain Scale Used: Stovall-Javier/Numerical Pain scale:: 5 Smoking Status Smoking Status: Never smoker Immunizations Flu Vaccine in the Last 12 Months: Yes Flu Vaccine Exclusion Criteria: Already Received 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 Menstrual regularity: regular Flow: normal Monthly: Yes How many days does period last: 7 Age at menarche: 11 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 1. Little interest or pleasure in doing things: not at all 2. Feeling down, depressed, or hopeless: not at all Total score: 0 PHQ-9 3. Trouble falling or staying asleep, or sleeping too much: Not at all 4. Feeling tired or having little energy: Not at all 5. Poor appetite or overeating: Not at all 6. Feeling bad about yourself - or that you are a failure or have let yourself or your family down: Not at all 7. Trouble concentrating on things, such as reading the newspaper or watching television: Not at all 8. Moving or speaking so slowly that other people could have noticed? - Or the opposite - being so fidgety or restless that you have been moving around a lot more than usual: not at all 9. Thoughts that you would be better off or of hurting yourself in some way: Not at all Total score: 0 Source: Developed by Drs. Des Mejia, Vivian Aguilar, Clinton Love and colleagues, with an educational hortencia from [employer]. Depression screen completed yes Social History Living Situation History Lives With: Family Housing: House Tobacco History Smoking Status: Never smoker Second Hand Smoke Exposure: No Alcohol History Alcohol Intake: Current Domestic Abuse History Do You Feel Safe at Home: Yes History of Present Illness HPI Narrative Jenni Teague presents with pelvic pain, fever, chills, nausea, and vaginal discharge that began Friday following recent IUD removal. The patient developed nausea, feeling like she was going to pass out, fever, chills, and pelvic pain starting Friday. She denies any bleeding at that time. By Friday, she noticed blood and vaginal discharge. The fever and chills resolved, but the pelvic pain persisted and is currently rated as a 7 out of 10 in severity. The pelvic pain started after her menstrual period, not during it. The patient contacted Dr. Hdez on Friday and was prescribed antibiotics. She reports that the symptoms appear to be related to the location where her IUD was removed, suggesting a possible infection at that site. She has a history of IUD removal. The patient has been taking doxycycline prescribed by Dr. Hdez for infection. ROS: General: Positive for fever and chills (resolved), negative for current fever and chills. Gastrointestinal: Positive for nausea. Neurological: Positive for feeling like passing out. Genitourinary: Negative for bleeding. Exam Narrative Physical exam: - Vaginal/SSE: Discharge present. No evidence of yeast infection or pus noted on examination. General General Appearance: alert, in no apparent distress and healthy appearing Head Head exam: atraumatic Neck Neck exam: Present normal inspection and trachea midline Chest Chest inspection: Present normal inspection and symmetric chest wall rise External exam: Present normal external exam; Absent tenderness Neuro Neurological exam: Present oriented X3 Psych Psychiatric exam: Present normal affect and normal mood Office Procedures OBC Clinic LOC & Office Proc's Nursing/Assessment Patient Status: Established Patient OB Clinic Nursing Assessment: Medication Reconciliation, Update PMH in EMR and Vital Signs OB Clinic Coordination of Care: Complex Care and Chronic Disease 1-5, Consent,records obtained, informed consent, Education Simp Pt/Fam, Lab and Imaging orders and Staff clarify orders Miscellaneous Interventions: Pelvic no cultures Established Patient Charge Established Patient Point Assignment: 110 Established Patient Point Charge: EP Level 3 (80-115) Assessment & Plan Diagnosis / Problem List (1) Postprocedural wound infection: Status: Acute (2) Coccidioidomycosis, unspecified: Status: Acute (3) Retained intrauterine contraceptive device (IUD): Status: Acute (4) Pelvic pain: Status: Acute (5) Postoperative pain: Status: Acute Plan Post-IUD Removal Pelvic Infection: - Bacterial infection at IUD removal site following recent procedure. - Symptoms of pelvic pain rated 7/10, fever, chills, nausea, and vaginal discharge. - Fever and chills resolved but pelvic pain persists. Plan: - Complete current doxycycline course as prescribed by Dr. Hdez. - Perform pelvic examination and collect culture swabs. - Prescribe doxycycline for 10 days. - Prescribe ibuprofen 600-800 mg every 6 hours for 5 days. - Prescribe Zofran for nausea. - Obtain CT scan after antibiotic course completion. - Work on CT scan approval. - Expected improvement by end of next week.
== END 2025-03-09 10:33 | disposition home or self-care (01) ==
LOC: HODSOBC 09:46
PROVIDERS: PCP Family Medicine; Referring Provider Family Medicine; Supervising Provider Obstetrics & Gynecology; Visit Provider Obstetrics & Gynecology
DX: T81.49XA Infection following a procedure, other surgical site, initial encounter (principal); N73.9 Female pelvic inflammatory disease, unspecified; G89.18 Other acute postprocedural pain; R10.20 Pelvic and perineal pain unspecified side; B38.9 Coccidioidomycosis, unspecified; Y84.8 Other medical procedures as the cause of abnormal reaction of the patient, or of later complication, without mention of misadventure at the time of the procedure
CPT/HCPCS: 99213; G0463

== ENCOUNTER → 2025-03-18 | Outpatient (CLI) | payer BC, SELFPAY ==
--- NOTE | 2025-03-18 12:37 | XR_ITS ---
Examination: CT abdomen with intravenous contrast CT pelvis with intravenous contrast 2-D coronal reconstructions 2-D sagittal reconstructions Date and time of exam: March 18, 2025, 1304 hours INDICATIONS: Lower pelvic pain after intrauterine device removal. CTDI: vol (mGy) 7.1 DLP: (mGycm) 399 Technique: Multiple axial sections of the abdomen and pelvis have been obtained. 64 slice high-resolution scanner used. 3 mm axial sections have been obtained, post intravenous injection 60 cc [id number] 2-D sagittal, coronal reconstructions obtained. Low dose protocols were performed. One or more of the following dose reduction techniques were used; automated exposure control, adjustment of the mA and/or KV according to patient size, use of iterative reconstruction technique. Findings: Small pericardial effusion No visualized liver or splenic lesion No gallstones No pancreatic or adrenal mass No renal or ureteral calculi, no hydronephrosis Aorta normal size No bowel obstruction Normal appendix Thick walled bilateral ovarian cysts, on the left side 3.1 cm, on the right side 3.5 cm Anteverted uterus with broad focus of increased density in the endometrium, axial image 189 through 185 Kerwin structures intact IMPRESSION: Broad focus of increased density in the endometrium of the uterus, axial image 189 through 185, recommend transvaginal pelvic sonography follow-up to confirm blood clot/hemorrhage
[2025-03-18 12:40] LABS: HCG Qualitative,Urine Negative
[2025-03-18 12:53] LABS: Alanine Aminotransferase 9 U/L (10-49); Albumin, Serum 4.5 gm/dL (3.5-5.0); Albumin/Globulin Ratio 1.2 (1.2-2.2); Alkaline Phosphatase 89 U/L (46-116); Anion Gap 12 (7-16); Aspartate Amino Transferase 37 U/L (0-34); BUN/Creatinine Ratio 14 Ratio (12-20); Bilirubin,Total 0.3 mg/dL (0.3-1.2); Blood Urea Nitrogen 11 mg/dL (9-23); Calcium 10.0 mg/dL (8.3-10.6); Calcium (Corrected) 10.0 mg/dL (8.5-10.1); Carbon Dioxide 25.2 mMol/L (20.0-31.0); Chloride 102 mMol/L (98-107); Creatinine (Component) 0.8 mg/dL (0.6-1.3); Globulin 3.7 gm/dL (2.3-3.5); Glucose 98 mg/dL (74-106); Osmolality,Calculated 276 (275-295); Potassium 4.3 mMol/L (3.4-5.1); Sodium 139 mMol/L (136-145); Total Protein 8.2 gm/dL (5.7-8.2); eGFR > 60 See Note
== END | disposition home or self-care (01) ==
PROVIDERS: PCP Family Medicine; Referring Provider Obstetrics & Gynecology; Visit Provider Radiology Diagnostic Radiology
DX: N85.8 Other specified noninflammatory disorders of uterus (principal); G89.18 Other acute postprocedural pain; Z32.00 Encounter for pregnancy test, result unknown
CPT/HCPCS: 36415; 74177; 80053; 81025; A4649; Q9967

== ENCOUNTER → 2025-03-28 | Outpatient (CLI) | payer BC, SELFPAY ==
--- NOTE | 2025-03-28 | XR_ITS ---
EXAMINATION: PA lateral chest 2 views TECHNIQUE: Upright PA lateral chest 2 views Date and time: March 28, 2025, 1248 hours INDICATIONS: Diagnosis coccidiomycosis FINDINGS: Stable parenchymal disease left upper lobe Prominent thoracic dextroscoliosis Normal heart size Right lung clear IMPRESSION: Stable parenchymal disease left upper lobe consistent with the patient's diagnosis of coccidiomycosis
[2025-03-28 14:19] LABS: Basophils # (Auto) 0.1 Thou/mm3 (0.0-0.2); Basophils % (Auto) 1 % (0-2.5); Eosinophils # (Auto) 0.1 Thou/mm3 (0.0-0.5); Eosinophils % (Auto) 1 % (0-10); Hematocrit 36.9 % (36.0-46.0); Hemoglobin 12.0 g/dL (12.0-16.0); Immature Granulocytes Auto 0.01 Thou/mm3 (0.00-0.00); Lymphocytes # (Auto) 2.0 Thou/mm3 (1.0-4.8); Lymphocytes % (Auto) 34 % (10-50); Mean Corpuscular HGB Conc 32.5 g/dl (31.0-37.0); Mean Corpuscular Hemoglobin 28.4 pg (25.0-35.0); Mean Corpuscular Volume 87 fL (80-100); Monocytes # (Auto) 0.5 Thou/mm3 (0.0-0.8); Monocytes % (Auto) 8 % (0-12); Neutrophils # (Auto) 3.4 Thou/mm3 (1.8-7.7); Neutrophils % (Auto) 57 % (37-80); Nucleated Red Blood Cell # 0.00 Thou/mm3 (0.00-0.00); Nucleated Red Blood Cell % 0 /100 WBC (0); Platelet Count 333 Thou/mm3 (140-440); RDW Standard Deviation 55.4 fL (36.4-46.3); Red Blood Count 4.22 Miln/mm3 (4.00-5.20); White Blood Count 6.0 Thou/mm3 (3.6-11.0)
[2025-03-28 14:33] LABS: Alanine Aminotransferase 14 U/L (10-49); Albumin, Serum 4.5 gm/dL (3.5-5.0); Albumin/Globulin Ratio 1.3 (1.2-2.2); Alkaline Phosphatase 72 U/L (46-116); Anion Gap 10 (7-16); Aspartate Amino Transferase 67 U/L (0-34); BUN/Creatinine Ratio 13 Ratio (12-20); Bilirubin,Total 0.4 mg/dL (0.3-1.2); Blood Urea Nitrogen 12 mg/dL (9-23); C-Reactive Protein < 0.5 mg/dL (0.0-0.9); Calcium 9.4 mg/dL (8.3-10.6); Calcium (Corrected) 9.4 mg/dL (8.5-10.1); Carbon Dioxide 27.0 mMol/L (20.0-31.0); Chloride 104 mMol/L (98-107); Creatinine (Component) 0.9 mg/dL (0.6-1.3); Globulin 3.6 gm/dL (2.3-3.5); Glucose 92 mg/dL (74-106); Osmolality,Calculated 280 (275-295); Potassium 4.1 mMol/L (3.4-5.1); Sodium 141 mMol/L (136-145); Total Protein 8.1 gm/dL (5.7-8.2); eGFR > 60 See Note
[2025-03-29 14:03] LABS: Cocci Serology, IgM Negative (Negative)
[2025-03-31 12:43] LABS: Cocci Serology, IgG Negative (Negative)
== END | disposition home or self-care (01) ==
LOC: CDIM 11:50 → COPL 12:56
PROVIDERS: PCP Family Medicine; Referring Provider Registered Nurse; Visit Provider Radiology Diagnostic Radiology
DX: J98.4 Other disorders of lung (principal); B38.9 Coccidioidomycosis, unspecified; R53.83 Other fatigue
CPT/HCPCS: 36415; 71046; 80053; 85025; 86140; 86331; 86635